=== PATIENT | male | born 1980 | race Caucasian/White ===

== ENCOUNTER 2019-07-12 12:05 | Outpatient (REF) | payer MEDICAID, SELFPAY ==
[2019-07-12 21:41] LABS: Anion Gap 9.4 mmol/L (3-11); BUN 13 mg/dL (7-18); CO2 26.6 mmol/L (21.0-32.0); CREATININE 0.98 mg/dL (0.70-1.30); Calcium 9.6 mg/dL (8.5-10.1); Calculated LDL 105 mg/dL; Chloride 105 mmol/L (98-107); Cholesterol 171 mg/dL (50-200); Glucose 101 mg/dL (70-100); HDL Cholesterol 56 mg/dL (40-60); Potassium 4.1 mmol/L (3.5-5.1); Sodium 141 mmol/L (136-145); Triglyceride 52 mg/dL (30-150)
[2019-07-14 10:23] LABS: PSA, Screening 0.9 ng/ml (0-2.5)
[2019-07-14 11:01] LABS: HIV-1/2 Ag & Ab Screen Negative (NEGAT)
[2019-07-14 11:09] LABS: Syphilis Serology (RPR) Negative (Negative)
[2019-07-14 14:19] LABS: Chlamydia Result Negative; GC Result Negative; Specimen Description URINE
== END 2019-07-12 12:25 ==
LOC: NCHCN 12:05
PROVIDERS: PCP Family Medicine; Visit Provider Specialist/Technologist Athletic Trainer
DX: Z11.3 Encounter for screening for infections with a predominantly sexual mode of transmission (principal); Z11.4 Encounter for screening for human immunodeficiency virus [HIV]; Z12.5 Encounter for screening for malignant neoplasm of prostate; Z13.220 Encounter for screening for lipoid disorders; Z13.228 Encounter for screening for other metabolic disorders
CPT/HCPCS: 80048; 80061; 84153; 87389; 87491; 87591; 86592

== ENCOUNTER 2021-04-06 12:01 | Emergency (ER) | payer MEDICAID, SELFPAY ==
[2021-04-06 12:05] VITALS: BP 143/94; PULSE 95; RESP 18; TEMP 37.3; O2SAT 99
--- NOTE | 2021-04-06 12:22 | ED.GENADUL_ITS ---
Discharge Plan Disposition Patient Disposition: HOME Condition: Improving Discharge Details Clinical Impression: Cellulitis of axilla, right Primary Care Provider: Roly Hernandez ED Provider: Harshal Baker Home Meds and New Rx's Prescriptions: New doxycycline hyclate 100 mg capsule 100 mg PO BID 14 Days Qty: 28 RF: 0 Discharge Instructions Instructions: Cellulitis (ED) Additional Instructions: Take doxycycline twice daily until finished. Return in 24 to 48 hours for recheck. Return sooner if you develop increased discomfort, or any other acute concern. May continue Tylenol and ibuprofen as needed for pain. Apply cool compress to area to reduce discomfort. Medical Decision Making 40-year-old male states he has day 3 of right upper arm. Erythema at the site of previous tick bite. He noticed fever and chills last night, reported to urgent care this morning was referred to the ER. Patient arrives afebrile, interactive with tender area of cellulitis on the superior armpit. He is not overweight nor diabetic. Does not seem consistent with hidradenitis suppurativa. I do believe he has a developing cellulitis, bedside ultrasound does not reveal focal fluid collection. I am concerned about the tick bite. Lyme and tick panel, screening blood work with blood culture was obtained. Labs note white count 9, hematocrit 46, platelets 194. Lactate 0.8. Chemistries reassuring. Blood cultures and Lyme panel pending. Consideration of Lyme disease exposure, patient was given IV doxycycline I will place him on a further course of doxy. I will have him return in 24 to 48 hours for recheck. He will return sooner for any acute concerns. HPI General Mode of arrival: ambulatory . Date/Time Provider Initiated Documentation: 04/06/21 12:06 . Limitations to Documentation: no limitations . Information obtained by: patient . History of Present Illness 40 year old M presents to the emergency department with the chief complaint of Right axilla pain and erythema with chills, described as moderate, Quality is described as dull and constant, and is localized to the right and upper extremity. Patient reports no radiation. Patient started experiencing this day(s) and it has been constant. No relieving factors improve symptom(s), No exacerbating factors reported . Patient notes fever/chills. Patient did receive the following treatments prior to arrival, none Related Data Home Medications Medication Instructions Recorded Confirmed doxycycline hyclate 100 mg PO BID 14 Days #28 cap 04/06/21 Previous Rx's Medication Instructions Recorded doxycycline hyclate 100 mg PO BID 14 Days #28 cap 04/06/21 Allergies Allergy/AdvReac Type Severity Reaction Status Date / Time No Known Allergies Allergy Unverified 04/06/21 12:08 General Stated Complaint: Cellulitis GEORGE: 3 Review of Systems Narrative: 6 systems reviewed and otherwise negative. Notes tick bites the area that he removed. [facility] Social History Smoking/Tobacco Use Status: Never Smoking risk assessment performed?: Yes Alcohol Intake: current Alcohol Intake frequency: holidays/special occasions only Drug use: Occasionally Substance use type: marijuana Do you feel safe at home: Yes Do you feel safe in your relationship?: Yes Exam Narrative Exam Narrative: GEN: awake, alert, oriented 3. Pleasant, well groomed, interactive. HEAD: Normocephalic, atraumatic ENT: Mucous membranes moist, oropharynx unremarkable, External ear exam unremarkable EYES: PERRL, EOMI NECK: Full ROM, no AGUSTIN, no menigismus CHEST/RESP: Nontender, clear to auscultation bilateral, no wheeze/rhonchi/rales CARDIOVASCULAR: RRR, no murmur, rub neville. 2+ Rad pulse bilateral EXT: Full ROM, right superior axilla with approximately 5 center meter diameter area of erythema that is tender to the touch. There is slight induration in the middle. No fluctuance appreciated. Neuro: Grossly normal neurologic exam, conversant, interactive. Psych: Speech fluent, thoughts congruent, affect normal Course Vital Signs Vital signs: Vital Signs Temperature 37.3 C 04/06/21 12:05 Pulse 95 H 04/06/21 12:05 Respiratory Rate 18 04/06/21 12:05 Blood Pressure 143/94 H 04/06/21 12:05 Pulse Oximetry 99 04/06/21 12:05 Temperature 37.3 C 04/06/21 12:05 Temperature Source Temporal Artery Scan 04/06/21 12:05 Pulse 95 H 04/06/21 12:05 Respiratory Rate 18 04/06/21 12:05 Respiratory Effort Non-Labored 04/06/21 12:09 Blood Pressure 143/94 H 04/06/21 12:05 Blood Pressure Position Sitting 04/06/21 12:05 Pulse Oximetry 99 04/06/21 12:05 Oxygen Delivery Method Room Air 04/06/21 12:05 Oxygen Flow Rate 0 04/06/21 12:05 Pain Level 5 04/06/21 12:05
[2021-04-06] MEDS: Normal Saline 1,000 ML 1000 ML IV (12:34)
[2021-04-06] MEDS: Normal Saline Flush 10 ML SYR IVP ×2 (12:35→12:42)
[2021-04-06 12:36] LABS: Abs Immature Grans 0.03 10^3/uL (0.0-0.06); Absolute Basophil Count 0.02 10^3/uL (0.0-0.2); Absolute Lymphocyte Count 1.08 10^3/uL (1.2-3.4); Absolute Monocyte Count 0.49 10^3/uL (0.1-0.8); Absolute Neutrophil Count 8.25 10^3/uL (1.2-6.7); Basophils % 0.2; HCT 46.5 % (40.0-50.0); HGB 16.3 g/dL (13.5-17.5); Immature Grans % 0.3; Lymphocytes % 10.9; MCH 29.8 pg (27.0-33.0); MCHC 35.1 % (32.0-36.0); MPV 9.5 fL (8.0-11.0); Neutrophils % 83.6; Nucleated RBC 0 %; Platelet Count 194 10^3/uL (130-400); RBC 5.47 10^6/uL (4.36-5.78); RDW 11.7 % (11.8-14.1); RDW-SD 35.9 fL; WBC 9.87 10^3/uL (4.4-10.8)
[2021-04-06] MEDS: Ketorolac 15 MG/ML VIAL IVP (12:42)
[2021-04-06 12:55] LABS: Lactate 0.8 mmol/L (0.9-1.7)
[2021-04-06 13:04] LABS: ALT 21 U/L (16-63); AST 17 U/L (15-37); Albumin 4.3 g/dL (3.4-5.0); Alkaline Phosphatase 50 U/L (46-116); Anion Gap 14.8 mmol/L (3-11); BUN 12 mg/dL (7-18); Bilirubin, Total 0.7 mg/dL (0.2-1.0); CO2 22.2 mmol/L (21.0-32.0); Calcium 9.4 mg/dL (8.5-10.1); Chloride 101 mmol/L (98-107); Glucose 104 mg/dL (74-106); Potassium 3.6 mmol/L (3.5-5.1); Sodium 138 mmol/L (136-145); Total Protein 7.7 g/dL (6.4-8.2)
[2021-04-06] MEDS: DOXYCYCLINE 100 MG in Normal Saline 100 ML IVPB (13:10)
[2021-04-06 14:21] VITALS: BP 121/79; PULSE 77; TEMP 37.5; O2SAT 99
[2021-04-08 12:25] LABS: Lyme Ab w Rflx to Lyme Confirm Positive (Negative)
[2021-04-09 04:12] LABS: Anaplasma phagocytophilum Negative (Negative); B. miyamotoi PCR Negative (Negative); Babesia divergens/MO-1 Negative (Negative); Babesia duncani Negative (Negative); Babesia microti Negative (Negative); Ehrlichia chaffeensis Negative (Negative); Ehrlichia ewingii/canis Negative (Negative); Ehrlichia muris eauclairensis Negative (Negative)
[2021-04-09 14:39] LABS: IgG Band(s) p41; IgG Immunoblot Negative (Negative); IgM Band(s) p23; IgM Immunoblot Negative (Negative)
== END 2021-04-06 14:21 | disposition home or self-care (01) ==
PROVIDERS: Emergency Provider Emergency Medicine; PCP Specialist/Technologist Athletic Trainer
DX: L02.411 Cutaneous abscess of right axilla (principal)
CPT/HCPCS: 36410; 36415; 80053; 86617; 87040; 87798; 96361; 96365; 96375; 99284; 83605; 85025; 86618; 99283; J1885

== ENCOUNTER 2021-09-19 11:39 | Emergency (ER) | payer MEDICAID, SELFPAY ==
[2021-09-19 11:44] VITALS: BP 145/79; PULSE 92; RESP 14; TEMP 36.7; O2SAT 98
--- NOTE | 2021-09-19 11:44 | ED.GENADUL_ITS ---
Discharge Plan Disposition Patient Disposition: HOME Condition: Stable Discharge Details Clinical Impression: Contusion of hand, right, Contusion of hand, left, Abrasion of hand Primary Care Provider: Unknown,Unknown ED Provider: Mary Lincoln Home Meds and New Rx's Prescriptions: No Action No Known Home Meds RF: 0 Discharge Instructions Instructions: Contusion in Adults (ED), Abrasion (ED) Additional Instructions: Your x-rays today are reassuring and did not note evidence of acute fracture. This is best treated with rest, ice and elevation of the affected area as much as possible. Alternate tylenol and motrin as needed and directed for pain. Keep wound clean and dry. Cover wound with bandage if risk of contamination. Otherwise you can keep the wound open to air if resting at home to allow edges to dry and heal. You can apply topical antibiotic ointment to the abrasions on your hand as needed to prevent infection. Follow up with your primary care doctor in 1 week as needed. Return to the emergency department with any worsening or new concerning symptoms. Referrals: Mark Arora MD [ [facility] STAFF PHYSICIAN] - Discharge Data Discharge Date/Time-TO BE ENTERED AT DEPARTURE: 09/19/21 12:57 Discharge Physician: Mary Lincoln Medical Decision Making 41-year-old male presents with injury to both hands after punched a floor with both hands prior to arrival. He has superficial abrasions overlying the skin overlying MCP joints of both hands. There is edema and tenderness overlying the right fifth metacarpal and pain with range of motion and tenderness overlying right dorsal wrist. There is no evidence of edema to the left dorsal hand. Consider fracture versus contusion. Will obtain x-rays and give a dose of ibupr ofen. Xrays negative. Raheel wrap placed to right hand. Patient instructed on the importance of RICE and wound care. Advised to follow up with the primary care doctor for re-evaluation. Usual and customary return precautions given prior to discharge. Medical Records Medical records reviewed: Yes I reviewed the patient's medical records. Imaging Data Radiologic Study: Radiologist's impression: XR WRIST RT COMPLETE CLINICAL HISTORY: punched a floor, pain dorsal wrist. TECHNIQUE: 2D digital imaging was performed. COMPARISON: No exams were available for comparison FINDINGS: There is no evidence of fracture or carpal dislocation. No significant ulnar variance. Bone density normal. No osseous lesions. No radiopaque foreign body IMPRESSION: No fracture evident. XR HAND LT COMPLETE CLINICAL HISTORY: punched a floor, pain dorsal hand 4th/5th MC. TECHNIQUE: 2D digital imaging was performed. COMPARISON: CR XR HAND RT COMPLETE from 09/19/2021 FINDINGS: There is no evidence of fracture nor dislocation. No radiopaque foreign body. No osseous lesions nor erosions. XR HAND RT COMPLETE CLINICAL HISTORY: punched a floor, pain 5th MC, r/o fx. TECHNIQUE: 2D digital imaging was performed. COMPARISON: None. FINDINGS: There is no evidence of fracture or dislocation. No radiopaque foreign body. No osseous lesions. Bone density is normal. IMPRESSION: No fracture evident HPI General Mode of arrival: ambulatory . Date/Time Provider Initiated Documentation: 09/19/21 11:41 . Limitations to Documentation: no limitations . Information obtained by: patient . HPI Narrative: Patient is a 41-year-old male who presents with injury to both hands after he punched a floor with both hands prior to arrival. Patient states the pain is mainly in his right dorsal hand but also has pain in his left hand. He also admits to some pain in his right dorsal wrist. He has not taken any medication for pain. He states his tetanus is up-to-date within 10 years. Related Data Home Medications Medication Instructions Recorded Confirmed Unknown [No Known Home Meds] 09/19/21 09/19/21 Allergies Allergy/AdvReac Type Severity Reaction Status Date / Time No Known Allergies Allergy Unverified 09/19/21 11:47 General GEORGE: 3 Review of Systems All systems reviewed & are unremarkable except as noted in HPI and below Constitutional Constitutional: Reports as per HPI, Denies chills and Denies fever(s) Eyes Eyes: Denies blurry vision ENT Ears, Nose, Mouth, and Throat: Denies dizziness, Denies sore throat and Denies throat swelling Cardiovascular Cardiovascular: Denies chest pain and Denies dyspnea Respiratory Respiratory: Denies cough and Denies dyspnea Gastrointestinal Gastrointestinal: Denies abdominal pain, Denies diarrhea and Denies vomiting Genitourinary Genitourinary: Denies hematuria and Denies dysuria Musculoskeletal Musculoskeletal: Denies back pain and Denies numbness Integumentary/Breasts Skin/Breast: Denies lesions and Denies rash Neurologic Neurologic: Denies dizziness, Denies localized weakness and Denies numbness Allergic/Immunologic Allergic/Immunologic: Denies throat swelling [facility] Active Problem List (Updated 09/19/21 @ 12:47 by Mary Lincoln DO) Contusion of hand, right (Acute) Contusion of hand, left (Acute) Abrasion of hand (Acute) Cellulitis of axilla, right (Acute) Medical History (Updated 09/19/21 @ 12:47 by Mary Lincoln DO) Gout Surgical History (Updated 09/19/21 @ 12:14 by Mary Lincoln DO) Broken jaw with reconstruction Social History Smoking/Tobacco Use Status: Never Smoking risk assessment performed?: Yes Alcohol Intake: current Alcohol Intake frequency: holidays/special occasions only Drug use: Occasionally Substance use type: marijuana Do you feel safe at home: Yes Do you feel safe in your relationship?: Yes Exam Const General: cooperative, healthy appearing and no acute distress HENMT Head: normal to inspection Mouth: oral mucosae normal Eyes General: appearance normal, both eyes and all related structures Neck Neck: normal visual inspection Resp Effort & Inspection: normal respiratory effort and able to speak in complete sentences Cardio Rate: regular rate Skin General skin exam: no rashes or lesions noted Neuro General: patient alert, patient awake and patient oriented x3 Motor: muscle tone normal throughout Extrem Hand/finger images: 1. Mild tenderness and mild to moderate edema. No ecchymosis. No deformity. 2. Superficial abrasions. 3. Mild tenderness. No edema, ecchymoses or deformity. 4. Superficial abrasions. 5. Tenderness to palpation and pain with range of motion, mostly extension. Other: Bilateral radial and ulnar pulses intact. No pain with range of motion at left wrist. No pain with range of motion of the fingers of hands bilatera llhanh. Psych Appearance: grossly normal Affect: normal affect
--- NOTE | 2021-09-19 12:00 | DI.RAD_ITS ---
Exam(s) XR HAND LT COMPLETE EXAM: XR HAND LT COMPLETE CLINICAL HISTORY: punched a floor, pain dorsal hand 4th/5th MC. TECHNIQUE: 2D digital imaging was performed. COMPARISON: CR XR HAND RT COMPLETE from 09/19/2021 FINDINGS: There is no evidence of fracture nor dislocation. No radiopaque foreign body. No osseous lesions no r erosions. IMPRESSION: DATA REPOSITORY: RADIATION DOSE DELIVERED:
--- NOTE | 2021-09-19 12:00 | DI.RAD_ITS ---
Exam(s) XR HAND RT COMPLETE EXAM: XR HAND RT COMPLETE CLINICAL HISTORY: punched a floor, pain 5th MC, r/o fx. TECHNIQUE: 2D digital imaging was performed. COMPARISON: None. FINDINGS: There is no evidence of fracture or dislocation. No radiopaque foreign body. No osseous lesions. B one density is normal. IMPRESSION: No fracture evident DATA REPOSITORY: RADIATION DOSE DELIVERED:
--- NOTE | 2021-09-19 12:00 | DI.RAD_ITS ---
Exam(s) XR WRIST RT COMPLETE EXAM: XR WRIST RT COMPLETE CLINICAL HISTORY: punched a floor, pain dorsal wrist. TECHNIQUE: 2D digital imaging was performed. COMPARISON: No exams were available for comparison FINDINGS: There is no evidence of fracture or carpal dislocation. No significant ulnar variance. Bone density normal. No osseous lesions. No radiopaque foreign body IMPRESSION: No fracture evident. DATA REPOSITORY: RADIATION DOSE DELIVERED:
[2021-09-19 12:57] VITALS: PULSE 84; RESP 14; O2SAT 98
== END 2021-09-19 12:57 | disposition home or self-care (01) ==
PROVIDERS: Emergency Provider Physician Assistant
DX: S60.221A Contusion of right hand, initial encounter (principal); S60.222A Contusion of left hand, initial encounter; W22.8XXA Striking against or struck by other objects, initial encounter
CPT/HCPCS: 99284; 73110; 73130; 99283

== ENCOUNTER 2021-11-28 02:01 | Outpatient (CLI) | payer MEDICAID, SELFPAY ==
--- NOTE | 2021-11-28 06:44 | DI.MRI_ITS ---
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 Both noninfused and contrast i nfused sequences were performed. IV Contrast injected was 15 cc Dotarem. COMPARISON: No exams were available for comparison FINDINGS: CEREBRAL PARENCHYMA: No evidence of intracranial hemorrhage, mass effect nor shift of midline structu re. No extraaxial fluid collections. Ventricles are not enlarged nor shifted. There is no significant focal signal abnormality in the cerebellar hemispheres nor within the hernando, m idbrain, and thalami. There is no abnormal signal abnormality in the periventricular white matter. No evidence of cerebellar tonsillar ectopia No evidence of restricted diffusion on DWI. No evidence of hemorrhage on SWI There are no ring enhancing lesions in the brain. There is no abnormal meningeal enhancement. PITUITARY GLAND: No mass nor parasellar abnormality. No obvious abnormality in the cavernous sinuses. FLOW VOIDS: The expected flow void are noted. No evidence of obvious aneurysm nor obvious vascular ma lformation. PARANASAL SINUSES: The visualized paranasal sinuses appear unremarkable. ORBITS: No obvious abnormal findings. IMPRESSION: 1. No significant intracranial findings on this MRI scan of the brain. 2. No abnormal enhancing intracranial findings. DATA REPOSITORY:
[2021-11-28] MEDS: Gadoterate meglumine 20 ML VIAL 15 ML IVP (07:56)
[2021-11-28] MEDS: Normal Saline Flush 10 ML SYR IVP (07:56)
== END 2021-11-28 02:21 ==
PROVIDERS: PCP Family Medicine; Visit Provider Otolaryngology
DX: R43.1 Parosmia (principal); R43.8 Other disturbances of smell and taste; Z86.69 Personal history of other diseases of the nervous system and sense organs
CPT/HCPCS: 70553

== ENCOUNTER 2022-03-21 15:26 | Emergency (ER) | payer MEDICAID, SELFPAY ==
[2022-03-21 15:32] VITALS: BP 107/72; PULSE 75; RESP 16; TEMP 36.9; O2SAT 98
--- NOTE | 2022-03-21 16:00 | RT.EKG_ITS ---
APPROVED REPORT Exam: Resting ECG Reason for Exam: syncope Patient Location: E HR:68 bpm ECG Measurements Heart Rate 68 AXIS KS 166 P 65 QRSd 94 QRS 61 QT 402 T 45 QTc 430 Conclusion Sinus rhythm...normal P axis, V-rate 60- 99
--- NOTE | 2022-03-21 16:22 | ED.GENADUL_ITS ---
Discharge Plan Disposition Patient Disposition: HOME Condition: Stable Discharge Details Clinical Impression: Episode of syncope Primary Care Provider: Sanjay Masterson ED Provider: Santa Abarca Home Meds and New Rx's Prescriptions: No Action No Known Home Meds Discharge Instructions Instructions: Syncope (ED) Additional Instructions: Your EKG and physical exam are reassuring here today. I agree with Dr. Vital in seeking referral for follow-up with neurology in regard to your chronic change in sense of smell. Your descriptors of today's events sound most consi stent with a syncopal episode. As we discussed, please try to cut back on the stress in your life, consider counselor or other stress mediating techniques. Please continue to encourage hydration. If you develop chest pain, shortness of breath, recurrent symptoms, palpitations or the new/worsening symptoms please seek care urgently once again. You have an appointment next Thursday, March 26, 2:15PM with Dr. Masterson. Referrals: Sanjay Masterson MD [Primary Care Provider] - 03/26/22 2:15 pm Discharge Data Discharge Date/Time-TO BE ENTERED AT DEPARTURE: 03/21/22 17:09 Medical Decision Making Patient is a pleasant 41-year-old gentleman presenting with chief complaint of brief loss of consciousness. He states that he was a sitting on the toilet having bowel movement approximate 3 hours prior to arrival he suddenly had a sensation that I stood up too fast despite being in a seated position. States that he awoke slumped over to holding a cell phone. States that when he woke he was back to his baseline was able to back to work. Does describe some dreamlike sensation during the period where he was unconscious. He denies any palpitations, chest pain or shortness of breath, visual change, nausea, vomiting, fever/chills, fall or injury. No significant family history. States he is also recently seen by ENT for parasomnia is gone ongoing for the past several years. Stated it started prior to COVID. Also describes grinding his teeth and large amount of stress recently. No recent change in his diet. Denies any illicit drug use no marijuana. Denies any alcohol use. Denies any change in his diet. States that he drinks large quantities of water daily and exercises does not have any symptoms when exerting himself. On exam, patient appears nontoxic. Normal cardiac exam, normal neurologic exam. No evidence of trauma which fits hx of no fall. ECG obtained and revieweed by Dr. Baker. NSR, no acute ischemic changes. Patient and I discussed these findings at length. His history of prodrome and brief LOC with full return to nromal immediately after is most consisteent with syncopal episode. He has had large amounts of stress. He has had several other chronic symptoms associated with this including difficulty sleepung b/c he is grinding his teeth. He was already evaluated by ENT for his change in smell, had been recommended to see neurology. I discussed stress reduction techniques, encouraged that he consider therapist. He would like to think about this. His presentation, history and exam are not consistent with ACS, PE, anemia, CVA or arrythmia. We did discuss further evaluation but after shared decsion making, will hold off on labs or other evaluation. Made appointment for PCP f/u. He was given strict return precautions. All of his quesitons and concerns were addressed, he is in agreement with this plan. HPI General Date/Time Provider Initiated Documentation: 03/21/22 15:37 . Limitations to Documentation: no limitations . Information obtained by: patient and RN notes reviewed . History of Present Illness 41 year old M presents to the emergency department with the chief complaint of syncopal episode, described as moderate, Patient started experiencing this hour(s) (3) and it has been now resolved (brief LOC with full return to baseline immediately after). No relieving factors improve symptom(s), No exacerbating factors reported . Patient notes no other symptoms.. Patient did receive the following treatments prior to arrival, none Related Data Home Medications Medication Instructions Recorded Confirmed Unknown [No Known Home Meds] 09/19/21 03/21/22 Allergies Allergy/AdvReac Type Severity Reaction Status Date / Time No Known Allergies Allergy Unverified 03/21/22 15:37 General Stated Complaint: GenMedical GEORGE: 3 Review of Systems Constitutional Constitutional: Reports as per HPI, Denies chills, Denies fever(s) and Denies headache(s) Eyes Eyes: Denies change in vision ENT Ears, Nose, Mouth, and Throat: Denies headache(s) Cardiovascular Cardiovascular: Reports as per HPI, Denies dyspnea and Denies dyspnea on exertion Respiratory Respiratory: Reports as per HPI, Denies chest congestion, Denies cough, Denies pain on inspiration, Denies pain with cough, Denies dyspnea and Denies dyspnea on exertion Gastrointestinal Gastrointestinal: Reports as per HPI, Denies abdominal pain, Denies diarrhea, Denies nausea and Denies vomiting Genitourinary Genitourinary: Denies system reviewed and no additional complaints, except as documented (denies change in urinary habits) Musculoskeletal Musculoskeletal: Reports as per HPI and Denies back pain Integumentary/Breasts Skin/Breast: Reports as per HPI and Denies rash Neurologic Neurologic: Reports as per HPI and Denies headache(s) PFSH All Active Problems (Updated 03/21/22 @ 16:40 by APOLLO Casper) Episode of syncope (Chronic) Parosmia (Acute) Halitosis (Acute) Contusion of hand, right (Acute) Contusion of hand, left (Acute) Abrasion of hand (Acute) Cellulitis of axilla, right (Acute) Medical History Decreased appetite Gout History of vitamin D deficiency Infection of skin Insect bite Low back pain Neck stiffness Preventative health care Screening for STD (sexually transmitted disease) Surgical History Broken jaw with reconstruction Family History Brother Crohn's disease Social History Smoking/Tobacco Use Status: Never Smoking risk assessment performed?: Yes Alcohol Intake: current Alcohol Intake frequency: holidays/special occasions only Drug use: Occasionally Substance use type: marijuana Do you feel safe at home: Yes Do you feel safe in your relationship?: Yes Exam Const General: cooperative, healthy appearing, comfortable, no acute distress and well developed Nutritional Appearance: average body habitus and well nourished Orientation: alert, awake and oriented x3 HENMT Head: normal to inspection and atraumatic Ears: hearing grossly normal bilaterally Mouth: oral mucosae normal and moist mucous membranes Eyes General: appearance normal, both eyes and all related structures Chest Chest: normal inspection of the chest, normal palpation of entire chest wall and no crepitus Resp Effort & Inspection: normal respiratory effort, able to speak in complete sentences and no respiratory distress Auscultation: clear to auscultation bilaterally, no rales, no rhonchi and no wheezes Cardio Rate: regular rate Rhythm: regular rhythm Heart Sounds: S1 normal and S2 normal GI Inspection: normal to inspection, no edema and non-distended Palpation: soft, no hepatosplenomegaly, not firm, no guarding, not rigid and nontender Auscultation: normal bowel sounds Back/Spine/Pelvis Back: no CVA tenderness Thoracic/Lumbar Spine: thoracic and lumbar spine normal to inspection Skin General skin exam: no rashes or lesions noted Trauma: no lacerations or abrasions Neuro General: patient alert, patient awake and patient oriented x3 Cranial Nerves: CN's II-XI intact bilaterally Cognition: normal cognition Speech: speech normal Gait: normal gait Motor: muscle tone normal throughout, strength 5/5 throughout, no pronator drift and no movement abnormalities noted Sensory Exam: no sensory deficits noted DTR's: Rt Biceps: 2+, Lt Biceps: 2+, Rt Brachioradialis: 2+, Lt Brachioradialis: 2+, Rt Patellar: 2+, Lt Patellar: 2+, Rt Ankle: 2+ and Lt Ankle: 2+ Coordination: [id number] test normal, [id number] test normal, Romberg test normal, tandem gait normal, Does not sway with eyes open and rapid alternating movement UE normal Extrem General: normal to inspection, capillary refill normal, no pedal edema, no calf tenderness and normal gait Psych Appearance: grossly normal and well kempt Mental Status: mental status grossly normal Speech and Movement: speech and movement normal Course Vital Signs Vital signs: Vital Signs Temperature 36.9 C 03/21/22 15:32 Pulse 75 03/21/22 15:32 Respiratory Rate 16 03/21/22 15:32 Blood Pressure 107/72 03/21/22 15:32 Pulse Oximetry 98 03/21/22 15:32 Temperature 36.9 C 03/21/22 15:32 Temperature Source Temporal Artery Scan 03/21/22 15:32 Pulse 75 03/21/22 15:32 Respiratory Rate 16 03/21/22 15:32 Respiratory Effort 03/21/22 15:32 Blood Pressure 107/72 03/21/22 15:32 Blood Pressure Position Sitting 03/21/22 15:32 Pulse Oximetry 98 03/21/22 15:32 Oxygen Delivery Method Room Air 03/21/22 15:32 Oxygen Flow Rate 0 03/21/22 15:32 Pain Level 0 03/21/22 15:32
== END 2022-03-21 17:09 | disposition home or self-care (01) ==
PROVIDERS: Emergency Provider Physician Assistant; PCP Family Medicine
DX: R55 Syncope and collapse (principal)
CPT/HCPCS: 93005; 99283; 93010

== ENCOUNTER 2022-11-17 14:51 | Outpatient (REF) | payer MEDICAID, SELFPAY ==
[2022-11-18 14:24] LABS: Chlamydia Result Negative (Negative); GC Result Negative (Negative)
== END 2022-11-17 14:52 | disposition home or self-care (01) ==
LOC: LBN 14:51
PROVIDERS: PCP Family Medicine; Visit Provider Nurse Practitioner Family
DX: Z11.3 Encounter for screening for infections with a predominantly sexual mode of transmission (principal)
CPT/HCPCS: 87491; 87591

== ENCOUNTER 2022-11-17 15:21 | Outpatient (CLI) | payer MEDICAID, SELFPAY ==
--- NOTE | 2022-11-17 | DI.US_ITS ---
Exam(s) US SCROTUM EXAM: US SCROTUM CLINICAL HISTORY: SCROTAL PAIN, N50.82. TECHNIQUE: Scrotal ultrasound performed using grayscale, color-flow and spectral Doppler analysis. COMPARISON: No exams were available for comparison FINDINGS: Right testicle: 3.5 x 2.1 x 3.8 cm Echogenicity: Normal. Contour: Smooth. Mass: None seen. Microlithiasis: None. Hydrocele: None. Variocele: None. Hernia: No peristalsing bowel loop identified. Epididymis: Normal. Left testicle: 4.1 x 1.5 x 3.6 cm Echogenicity: Normal. Contour: Smooth. Mass: None seen. Microlithiasis: None. Hydrocele: None. Variocele: None. Hernia: No peristalsing bowel loop identified. Epididymis: Normal. DOPPLER: Color: Symmetric and uniform, no hyperemia. Duplex: Bilateral testicular arterial waveforms visualized. IMPRESSION: 1. Normal appearing bilateral testicles. 2. No evidence of a hydrocele or epididymal mass. DATA REPOSITORY:
== END 2022-11-17 15:41 ==
LOC: DI 15:22
PROVIDERS: PCP Family Medicine; Visit Provider Nurse Practitioner Family
DX: N50.82 Scrotal pain (principal)
CPT/HCPCS: 76870

== ENCOUNTER 2023-05-06 10:29 | Outpatient (REF) | payer MEDICAID, SELFPAY ==
[2023-05-06 16:24] LABS: Abs Immature Grans 0.02 10^3/uL (0.0-0.06); Absolute Basophil Count 0.03 10^3/uL (0.0-0.2); Absolute Eosinophil Count 0.01 10^3/uL (0.0-0.7); Absolute Lymphocyte Count 2.82 10^3/uL (1.2-3.4); Absolute Monocyte Count 0.49 10^3/uL (0.1-0.8); Absolute Neutrophil Count 4.21 10^3/uL (1.2-6.7); Basophils % 0.4; Eosinophils % 0.1; HCT 44.4 % (40.0-50.0); Immature Grans % 0.3; Lymphocytes % 37.2; MCH 28.6 pg (27.0-33.0); MCHC 33.8 % (32.0-36.0); MCV 85 fL (80-95); MPV 10.7 fL (8.0-11.0); Monocytes % 6.5; Neutrophils % 55.5; Platelet Count 200 10^3/uL (130-400); RBC 5.24 10^6/uL (4.36-5.78); RDW 12.5 % (11.8-14.1); RDW-SD 37.8 fL; WBC 7.58 10^3/uL (4.4-10.8)
[2023-05-06 16:29] LABS: ESR 34 mm/hr (0-15)
[2023-05-06 16:31] LABS: ALT 26 U/L (16-63); AST 25 U/L (15-37); Albumin 3.8 g/dL (3.4-5.0); Alkaline Phosphatase 79 U/L (46-116); Anion Gap 7.2 mmol/L (3-11); BUN 10 mg/dL (7-18); Bilirubin, Total 0.7 mg/dL (0.2-1.0); C-Reactive Protein 6.24 mg/dL (0.0-0.3); CO2 28.8 mmol/L (21.0-32.0); Calcium 9.3 mg/dL (8.5-10.1); Chloride 104 mmol/L (98-107); Estimated GFR 94.59 (mL/min/1.73m2); Glucose 93 mg/dL (74-106); Potassium 4.5 mmol/L (3.5-5.1); Sodium 140 mmol/L (136-145); TSH (W/Ref FT4) 0.74 uIU/mL (0.36-3.74); Total Protein 7.1 g/dL (6.4-8.2)
[2023-05-06 21:49] LABS: Rheumatoid Factor <8.6 IU/mL (<12.0)
[2023-05-07 13:24] LABS: Lyme Ab w Rflx to Lyme Confirm Positive (Negative)
[2023-05-07 14:19] LABS: ANA Interpretation Positive (Negative); ANA Titer Pattern 1:320 Speckled
[2023-05-08 10:20] LABS: Lyme IgG Ab Positive (Negative); Lyme IgM Ab Positive (Negative)
[2023-05-09 01:01] LABS: B. miyamotoi PCR Negative (Negative); Babesia divergens/MO-1 Negative (Negative); Babesia duncani Negative (Negative); Babesia microti Negative (Negative); Ehrlichia chaffeensis Negative (Negative); Ehrlichia ewingii/canis Negative (Negative); Ehrlichia muris eauclairensis Negative (Negative)
[2023-05-09 01:25] LABS: Anaplasma phagocytophilum Positive (Negative)
== END 2023-05-06 10:30 | disposition home or self-care (01) ==
LOC: NCHCN 10:29
PROVIDERS: PCP Family Medicine; Visit Provider Physician Assistant Medical
DX: M79.652 Pain in left thigh (principal)
CPT/HCPCS: 80053; 85652; 86617; 87798; 84443; 85025; 86038; 86140; 86431; 86618

== ENCOUNTER 2023-05-08 09:30 | Emergency (ER) | payer MEDICAID, SELFPAY ==
[2023-05-08 09:32] VITALS: BP 114/95; PULSE 94; RESP 18; TEMP 37.2; O2SAT 100
[2023-05-08 09:36] VITALS: RESP 18
--- NOTE | 2023-05-08 10:00 | ED.GENADUL_ITS ---
Discharge Plan Disposition Patient Disposition: Home Condition: Stable Discharge Details Clinical Impression: Acute Lyme disease Primary Care Provider: Sanjay Masterson ED Provider: Alexandre Chirinos Home Meds and New Rx's Prescriptions: New doxycycline hyclate 100 mg capsule 100 mg PO BID 21 Days Qty: 42 0RF Discharge Instructions Instructions: Lyme Disease (ED) Additional Instructions: Your initial testing is positive for Lyme disease. We have started you on doxycycline. Please continue to rest, stay well-hydrated and return immediately for any new or significant worsening of symptoms. Once the full tickborne panel has returned someone should contact you for any treatment changes. Please follow-up with your primary care provider to ensure that you are improving. Referrals: Sanjay Masterson MD [Primary Care Provider] - 1 week Discharge Data Discharge Date/Time-TO BE ENTERED AT DEPARTURE: 05/08/23 10:16 Medical Decision Making Patient presenting to the emergency department for chief complaint of severe myalgias. Patient states that he has ongoing muscle aches and pains but over the last week he has had severe worsening of myalgias, left thigh pain, and also has now developed fever and chills. Patient was seen a couple days ago in the urgent care and they faustino labs but did not initiate any treatment. This morning he woke up feeling worse. Patient denies any rash, cough or shortness of breath or chest pain, vomiting or other symptoms. Physical exam shows significant pain and discomfort with movement, no nuchal rigidity or meningeal signs, clear lung sounds, normal cardiac exam, no joint swelling or edema, no rash. Did review labs from urgent care which did show positive Lyme antibodies but full report of Ig G and IgM have not returned. I am concerned for tickborne illness so we will start patient on doxycycline right away. Did offer patient further labs IV fluids and ketorolac. At this time with use of shared decision making patient will start doxycycline and go home and orally hydrate and return for any new or significant worsening of his condition. We will have patient follow-up with primary care provider in 1 week for reassessment and to ensure that he is improving. After discussion of diagnosis and plan of care patient has no fu rther needs, questions, or concerns and states clear understanding to return to the emergency department for any worsening symptoms. This documentation was generated using newScaleation system, please disregard any oddities of phrase or misspellings. HPI General Mode of arrival: ambulatory . Date/Time Provider Initiated Documentation: 05/08/23 09:35 . Limitations to Documentation: no limitations . Information obtained by: patient, RN notes reviewed and old records reviewed . History of Present Illness 43 year old M presents to the emergency department with the chief complaint of Severe myalgias, described as severe, with intensity rated at 8. Quality is described as aching, Patient started experiencing this week(s) (1) and it has been constant. No relieving factors improve symptom(s), No exacerbating factors reported . Patient notes fever/chills and malaise. Patient did receive the following treatments prior to arrival, none Related Data Home Medications Medication Instructions Recorded Confirmed doxycycline hyclate 100 mg capsule 100 mg PO BID 21 days #42 caps 05/08/23 Previous Rx's Medication Instructions Recorded doxycycline hyclate 100 mg capsule 100 mg PO BID 21 days #42 caps 05/08/23 Allergies Allergy/AdvReac Type Severity Reaction Status Date / Time No Known Allergies Allergy Unverified 05/08/23 09:40 General Stated Complaint: GenMedical GEORGE: 3 Review of Systems Constitutional Constitutional: Reports chills, Reports fatigue, Reports fever(s), Denies headache(s) and Reports malaise ENT Ears, Nose, Mouth, and Throat: Denies headache(s) Cardiovascular Cardiovascular: Denies chest pain and Denies dyspnea Respiratory Respiratory: Denies cough and Denies dyspnea Gastrointestinal Gastrointestinal: Denies abdominal pain and Reports nausea Musculoskeletal Musculoskeletal: Reports as per HPI, Reports myalgias and Denies joint swelling Integumentary/Breasts Skin/Breast: Denies erythema and Denies rash Neurologic Neurologic: Denies headache(s) Endocrine Endocrine: Reports fatigue PFSH All Active Problems (Updated 05/08/23 @ 10:04 by Alexandre Chirinos NP) Acute Lyme disease (Acute) Parosmia (Acute) Halitosis (Acute) Contusion of hand, right (Acute) Contusion of hand, left (Acute) Abrasion of hand (Acute) Cellulitis of axilla, right (Acute) Medical History Decreased appetite Gout History of vitamin D deficiency Infection of skin Insect bite Low back pain Neck stiffness Preventative health care Screening for STD (sexually transmitted disease) Surgical History Broken jaw with reconstruction Family History Brother Crohn's disease Social History Smoking/Tobacco Use Status: Never Smoking risk assessment performed?: Yes Alcohol Intake: current Alcohol Intake frequency: holidays/special occasions only Drug use: Occasionally Substance use type: marijuana Housing: house Do you feel safe at home: Yes Do you feel safe in your relationship?: Yes Exam Const General: cooperative, healthy appearing, no acute distress and well groomed Orientation: alert, awake and oriented x3 HENMT Head: normal to inspection Ears: hearing grossly normal bilaterally Eyes Visual Eugene: normal visual eugene by confrontation Alignment and Position: alignment normal Periorbital: periorbital findings normal Neck Neck: normal visual inspection, full ROM, no lymphadenopathy and no meningeal signs Resp Effort & Inspection: normal respiratory effort and able to speak in complete sentences Auscultation: clear to auscultation bilaterally Cardio Rate: regular rate Rhythm: regular rhythm Heart Sounds: S1 normal and S2 normal Neuro General: patient alert, patient awake, patient oriented x3, tone normal, moves all extremities and not confused Cognition: normal cognition Motor: muscle tone normal throughout Extrem General: other (Significant discomfort noted with any movement) Course Vital Signs Vital signs: Vital Signs Temperature 37.2 C 05/08/23 09:32 Pulse 94 H 05/08/23 09:32 Respiratory Rate 18 05/08/23 09:32 Blood Pressure 114/95 H 05/08/23 09:32 Pulse Oximetry 100 05/08/23 09:32 Temperature 37.2 C 05/08/23 09:32 Temperature Source Oral 05/08/23 09:32 Pulse 94 H 05/08/23 09:32 Respiratory Rate 18 05/08/23 09:36 Respiratory Effort Normal 05/08/23 09:36 Respiratory Depth Normal 05/08/23 09:36 Respiratory Pattern Normal 05/08/23 09:36 Blood Pressure 114/95 H 05/08/23 09:32 Blood Pressure Position Sitting 05/08/23 09:32 Pulse Oximetry 100 05/08/23 09:32 Oxygen Delivery Method Room Air 05/08/23 09:32 Oxygen Flow Rate 0 05/08/23 09:32 Pain Level 7 05/08/23 09:32 PAWSS Have you Been Recently Intoxicated or Drunk Within the Last 30 days?: No Have you Ever Experienced Previous Episodes of Alcohol Withdrawal?: No Have you ever Experienced Withdrawal Seizures?: No Have you ever Experienced Delirium Tremens(DT)s?: No Have you ever undergone Alcohol Rehabilitation Treatment (i.e, inpt ot outpatient treatment programs)?: No Have you ever Experienced Blackouts?: No Have you ever Combined Alcohol with other Downers within the last 90 days?: No Have you ever Combined Alcohol with any other Substance of Abuse during the last 90 days?: No Result: 0
--- NOTE | 2023-05-08 10:11 | NUR.NOTE ---
Nursing Note: PT needs follow up with PCP in one week for suspected lyme disease. Alvinia, ED
[2023-05-08] MEDS: Doxycycline Hyclate 100 MG CAP PO (10:16)
== END 2023-05-08 10:16 | disposition home or self-care (01) ==
PROVIDERS: Emergency Provider Nurse Practitioner Family; PCP Family Medicine
DX: A69.20 Lyme disease, unspecified (principal)
CPT/HCPCS: 99283; 99284